=== PATIENT | female | born 1995 | race Two or more races ===

== ENCOUNTER 2021-05-05 17:59 | Emergency (ER) | payer SELFPAY ==
[~2021-05-05] VITALS: Ht 160 cm; Wt 145.1 kg
[2021-05-05 18:22] VITALS: BP 114/66
== END 2021-05-05 23:30 | disposition left against medical advice (07) ==
LOC: ER 17:59 → EDBD 17:59 → ER 23:30
DX: R51.9 Headache, unspecified (principal); M79.602 Pain in left arm; Z53.21 Procedure and treatment not carried out due to patient leaving prior to being seen by health care provider